=== PATIENT | male | born 1955 | race Caucasian/White ===

== ENCOUNTER → 2019-09-01 | Outpatient (CLI) | payer BC ==
--- NOTE | 2019-09-01 15:22 | Diagnostic Imaging Report ---
TECHNIQUE: Magnetic resonance imaging of the RIGHT KNEE was performed WITHOUT injected contrast. HISTORY: Meniscus tear COMPARISON: None available. FINDINGS: LIGAMENTS AND TENDONS: ACL: Intact PCL: Intact Collateral ligaments: Intact Iliotibial band: Unremarkable Popliteal tendon: Intact Extensor mechanism: Intact JOINT: Menisci: Medial: Intact Lateral: Intact Articular Cartilage: Medial Compartment: No focal defect. Lateral Compartment: No focal defect. Patellofemoral Compartment: No focal defect. Joint Fluid: The amount of fluid within the joint is within physiologic limits. BONE: No focal or infiltrative bone marrow replacing abnormality. No acute fracture. SOFT TISSUES: Insertional tendinopathy of the semimembranosus with adjacent edema. IMPRESSION: 1. No acute osseous, ligamentous, or meniscal abnormality. 2. Tendinopathy of the semimembranosus insertion with overlying edema. Signed by: Dr. Sunil Baumann M.D. on 09/01/2019 3:18 PM
== END ==
LOC: MRI 13:55
PROVIDERS: ATTEND Specialist
DX: S83.221A Peripheral tear of medial meniscus, current injury, right knee, initial encounter (principal)